=== PATIENT | female | born 1985 | race Caucasian/White ===

== ENCOUNTER 2017-03-13 16:03 | Emergency (ER) | payer OTHER ==
[~2017-03-13] VITALS: Wt 104.3 kg
[~2017-03-13 16:03] MED LIST: BIRTH CONTROL1 EAC1 PO; LOMOTIL 0.025 M1 TA1 PO; MACROBID100 M1 PO; MOTRIN 800 MG E4 TAB PO; PRENATAL1 TA2 PO; TRAMADOL HCL50 MG PO; ZOFRAN ODT4 MG SL
[2017-03-13 16:11] VITALS: BP 131/90
[2017-03-14 06:10] LABS: HEPATITIS B SURFACE AB 006395 Non Reactive (.); HEPATITIS C AB <0.1 (0.0-0.9); HIV 1+2 AB + HIV1 P24 AG Non Reactive (Non Reactive)
== END 2017-03-13 16:27 | disposition home or self-care (01) ==
LOC: ED 16:03
PROVIDERS: Nurse Practitioner Family
DX: S61.432A Puncture wound without foreign body of left hand, initial encounter (principal); R03.0 Elevated blood-pressure reading, without diagnosis of hypertension; Z77.21 Contact with and (suspected) exposure to potentially hazardous body fluids; Z79.899 Other long term (current) drug therapy; W46.1XXA Contact with contaminated hypodermic needle, initial encounter; Y93.89 Activity, other specified; Y92.69 Other specified industrial and construction area as the place of occurrence of the external cause; Y99.9 Unspecified external cause status

== ENCOUNTER → 2017-07-29 | Outpatient (CLI) | payer BC ==
[2017-07-30 06:10] LABS: PROGESTERONE 004317 10.3 ng/mL (.)
== END | disposition home or self-care (01) ==
LOC: LAB 15:24
PROVIDERS: Obstetrics & Gynecology
DX: N97.8 Female infertility of other origin (principal)

== ENCOUNTER → 2018-01-02 | Outpatient (CLI) | payer BC | END | disposition home or self-care (01) | LOC: LAB 07:03 | DX: E28.2 Polycystic ovarian syndrome (principal) ==

== ENCOUNTER → 2018-07-09 | Outpatient (CLI) | payer BC | END | disposition home or self-care (01) | LOC: US 14:57 | DX: Z34.81 Encounter for supervision of other normal pregnancy, first trimester (principal); Z3A.01 Less than 8 weeks gestation of pregnancy ==

== ENCOUNTER → 2020-04-15 | Outpatient (CLI) | payer BC | END | disposition home or self-care (01) | LOC: COVID19 10:54 | PROVIDERS: ATTEND Internal Medicine | DX: U07.1 COVID-19 (principal) ==

== ENCOUNTER 2024-09-07 15:37 | Inpatient (IN) | payer BC ==
[~2024-09-07] VITALS: Ht 160 cm; Wt 100.3 kg
[2024-09-07 15:48] VITALS: BP 142/82
[2024-09-07] MEDS ORDERED: SODIUM CHLORIDE 0.9% 1,000 ML IV ONE ×2 (16:40→20:00)
[2024-09-07 17:02] LABS: BASO % 0.3 % (0.0-1.0); EOS # 0.1 10*3/uL (0.0-0.4); EOS % 0.5 % (1.0-4.0); HEMATOCRIT 36.8 % (37.0-47.0); MEAN CELL VOLUME 90.2 fl (81.0-99.0); MEAN CORPUSCULAR HGB 29.4 pg (27.0-31.0); MEAN CORPUSCULAR HGB CONC 32.6 g/dl (33.0-37.0); MEAN PLATELET VOLUME 9.5 fl (9.6-12.3); MONO # 0.6 10*3/uL (0.1-1.0); MONO % 5.2 % (3.0-9.0); NEUT # 6.8 10*3/uL (2.3-7.9); NEUT % 57.2 % (47.0-73.0); PLATELET COUNT AUTOMATED 311 10*3/uL (130-400); RED BLOOD COUNT 4.08 10*6/uL (4.10-5.10); RED CELL DISTRI WIDTH 12.6 % (0-14.5); WHITE BLOOD COUNT 11.9 10*3/uL (4.8-10.8)
[2024-09-07 17:03] LABS: BILIRUBIN Negative (Negative); BLOOD Negative (Negative); CLARITY Clear (Clear); COLOR Yellow (Yellow); GLUCOSE Negative (Negative); KETONE Negative (Negative); LEUKO ESTERASE Negative (Negative); NITRITE Negative (Negative); PH 6.5 (4.5-8.0); SPECIFIC GRAVITY <= 1.005 (1.001-1.030); UROBILINOGEN 0.2 E.U./dl (0.0-1.0)
[2024-09-07 17:12] LABS: BACTERIA 1+; RBC 0-2 rbc/hpf (0-2); WBC 0-2 wbc/hpf (0-5)
[2024-09-07 17:32] LABS: ALKALINE PHOSPHATASE 58 U/L (46-116); BUN 9 mg/dl (9-23); CHLORIDE 102 mmol/L (98-107); LIPASE 33 U/L (12-53); POTASSIUM 3.3 mmol/L (3.4-5.1); SGPT/ALT 14 U/L (5-49); TOTAL PROTEIN 7.2 gm/dL (6.0-8.0)
[2024-09-07] MEDS ORDERED: IOHEXOL 300 MG/ML 100 ML VIAL IV ONE (18:15)
[2024-09-07] MEDS ORDERED: IOHEXOL 300 MG/ML 100 ML VIAL ONE (18:33)
[2024-09-07] MEDS ORDERED: MORPHINE Sulfate 2 MG/ML SYR IV ONE (18:45)
[2024-09-07] MEDS ORDERED: Piperacillin Sodium/Tazobact 50 ML IV ONE (19:40)
[2024-09-07] MEDS ORDERED: Ondansetron Hydrochloride 4 MG/2 ML VIAL IV PRN (19:55)
[2024-09-07] MEDS ORDERED: MORPHINE Sulfate 2 MG/ML SYR IV PRN (19:55)
[2024-09-07 22:38] VITALS: BP 128/66
[2024-09-07 23:00] VITALS: BP 125/76
[2024-09-07] MEDS ORDERED: Ketorolac Tromethamine 15 MG/ML VIAL IV ONE (23:45)
[2024-09-07] MEDS ORDERED: HYDROmorphONE Hydrochloride 0.5 MG/0.5 ML SYRINGE IV PRN (23:45)
[2024-09-08] VITALS (8 sets, daily range): BP systolic 117–140; BP diastolic 71–90
[2024-09-08] MEDS ORDERED: POTASSIUM CHLORIDE IN WATER 100 ML IV SCH
[2024-09-08] MEDS ORDERED: Piperacillin Sodium/Tazobact 50 ML IV SCH ×2 (02:00→16:00)
[2024-09-08 06:25] LABS: BASO % 0.3 % (0.0-1.0); EOS % 0.5 % (1.0-4.0); HEMATOCRIT 35.9 % (37.0-47.0); MEAN CELL VOLUME 89.8 fl (81.0-99.0); MEAN CORPUSCULAR HGB CONC 33.4 g/dl (33.0-37.0); MEAN PLATELET VOLUME 9.5 fl (9.6-12.3); MONO # 0.3 10*3/uL (0.1-1.0); MONO % 5.1 % (3.0-9.0); NEUT # 3.3 10*3/uL (2.3-7.9); NEUT % 54.3 % (47.0-73.0); PLATELET COUNT AUTOMATED 275 10*3/uL (130-400); RED CELL DISTRI WIDTH 12.8 % (0-14.5); WHITE BLOOD COUNT 6.1 10*3/uL (4.8-10.8)
[2024-09-08 06:29] LABS: ACT PARTIAL THROMBO TIME 25.8 SECONDS (20.0-32.1)
[2024-09-08 07:09] LABS: BUN 6 mg/dl (9-23); CHLORIDE 106 mmol/L (98-107); CHOLESTEROL 153 mg/dL (<200); FREE T4 1.12 ng/dl (0.89-1.76); LDL CHOLESTEROL 80 mg/dL (9-159); POTASSIUM 3.7 mmol/L (3.4-5.1); TRIGLYCERIDES 96 mg/dl (<150)
[2024-09-08] MEDS ORDERED: Lactated Ringer's Solution 1,000 ML IV ONE (07:09)
[2024-09-08 07:30] LABS: VITAMIN D, 25-HYDROXY 33.8 ng/mL (30-100)
[2024-09-08] MEDS ORDERED: BUPivacaine 0.5% 30 ML IV ONE (07:32)
[2024-09-08] MEDS ORDERED: SODIUM CHLORIDE 0.9% 100 ML IV ONE (07:37)
[2024-09-08] MEDS ORDERED: PERCOCET 5-3251 EACH PO (07:50)
[2024-09-08] MEDS ORDERED: COLACE100 MG PO (07:50)
[2024-09-08] MEDS ORDERED: Ketorolac Tromethamine 30 MG/ML VIAL IV PRN (11:00)
[2024-09-08] MEDS ORDERED: fentaNYL CITRATE 100 MCG/2 ML VIAL IV ONE (19:07)
[2024-09-08] MEDS ORDERED: PROPOFOL 200 MG/20 ML VIAL IV ONE (19:07)
[2024-09-08] MEDS ORDERED: SUGAMMADEX SODIUM 200 MG/2 ML VIAL IV ONE (19:07)
[2024-09-08] MEDS ORDERED: Lidocaine Hydrochloride 5 ML VIAL IV ONE (19:07)
[2024-09-08] MEDS ORDERED: SEVOFLURANE 250 ML BOT INH ONE (19:07)
[2024-09-08] MEDS ORDERED: Dexamethasone Sodium Phospha 4 MG/ML VIAL IV ONE (19:07)
[2024-09-08] MEDS ORDERED: ROCURONIUM BROMIDE 50 MG/5 ML SYRINGE IV ONE (19:07)
[2024-09-08] MEDS ORDERED: Midazolam Hydrochloride 2 MG/2 ML VIAL IV ONE (19:07)
[2024-09-08] MEDS ORDERED: Ondansetron Hydrochloride 4 MG/2 ML VIAL IV ONE (19:07)
[2024-09-08] MEDS ORDERED: Ketorolac Tromethamine 30 MG/ML VIAL IV ONE (19:07)
== END 2024-09-08 16:05 | disposition home or self-care (01) | DRG 399 ==
LOC: ED 15:37 → 4E 19:44 → EDHOLD 19:44 → 5E 22:23 → 4E 09-08 07:14
PROVIDERS: Internal Medicine; Student in an Organized Health Care Education/Training Program; ADMIT Internal Medicine; ATTEND Internal Medicine
PROC: 0DTJ4ZZ Resection of Appendix, Percutaneous Endoscopic Approach (ICD-10-PCS; principal; 2024-09-08)
DX: K35.80 Unspecified acute appendicitis (principal); E87.6 Hypokalemia; D25.9 Leiomyoma of uterus, unspecified; K76.0 Fatty (change of) liver, not elsewhere classified; Z90.49 Acquired absence of other specified parts of digestive tract; K21.9 Gastro-esophageal reflux disease without esophagitis; Z82.49 Family history of ischemic heart disease and other diseases of the circulatory system; Z79.1 Long term (current) use of non-steroidal anti-inflammatories (NSAID); Z88.8 Allergy status to other drugs, medicaments and biological substances; Z79.899 Other long term (current) drug therapy

== ENCOUNTER → 2025-03-16 | Outpatient (CLI) | payer BC ==
[~2025-03-16] MED LIST changes: +COLACE100 MG PO; +PERCOCET 5-3251 EACH PO
== END | disposition home or self-care (01) ==
LOC: RAD 07:28
PROVIDERS: ATTEND Family Medicine
DX: J06.9 Acute upper respiratory infection, unspecified (principal)